=== PATIENT | male | born 1960 ===

== ENCOUNTER 2017-05-01 02:03 | Emergency (ER) | payer SELFPAY ==
[2017-05-01 02:26] VITALS: BP 147/86
[2017-05-01] MEDS ORDERED: ASPIRIN PO ONE (02:26)
== END 2017-05-01 02:43 | disposition left against medical advice (07) ==
LOC: ED 02:03
DX: R07.9 Chest pain, unspecified (principal); R06.02 Shortness of breath; Z53.21 Procedure and treatment not carried out due to patient leaving prior to being seen by health care provider
CPT/HCPCS: 93005; 93010